=== PATIENT | male | born 1955 | race Caucasian/White ===

== ENCOUNTER → 2017-03-04 | Outpatient (CLI) | payer BC ==
--- NOTE | 2017-03-04 13:31 | PCVCIMAG ---
APPROVED REPORT Exam: Stress Echocardiogram Indication: Hyperlipidemia, Hypertension Patient Location: Echo lab Stress Nurse: Rosemary Tran RN Status: routine Ht: 5 ft 11 in HR: 64 bpm BP: 116/70 mmHg Rhythm: NSR Stress Test Details Stress Test: Exercise stress testing was performed using a modified [employer] protocol. HR Resting HR: 64 bpmMax Heart Rate (APMHR): 157 bpm Max HR Achieved: 164 bpmTarget HR (85% APMHR): 133 bpm % of APMHR: 104 Recovery HR: 107 bpm HR response to stress: Normal HR response to stress BP Resting BP: 116/70 mmHg Max BP: 158/64 mmHg Recovery BP: 134/60 mmHg ECG Resting ECG: Sinus Rhythm Stress ECG: Sinus Rhythm Recovery ECG: Sinus Rhythm Recovery Arrhythmia: , APC Clinical Reason for Termination: Maximal effort Exercise duration: 6 min 00 sec Highest Stage Achieved: Stage 2: 2.5 mph at 12% grade. Exercise capacity: 7.00 METs Overall Exercise Capacity for Age: Average Pre-Stress Echo The resting Echocardiogram showed normal left ventricular contractility with an estimated Ejection Fraction of about >55%. Normal wall motion in all segments on baseline images. Known mitral valve prolapse with mild-moderate mitral regurgitation. Trace Tricuspid regurgitation. Pulmonary artery pressure is 28 mmHg. Post-Stress Echo The stress Echocardiogram showed normal left ventricular contractility with an estimated Ejection Fraction of about 60-65%. Normal augmentation of wall motion in all segments on post stress images. Clinical No clinical or ECG evidence for ischemia. Conclusion Clinical Response: Non-ischemic Exercise Capacity: Average Stress ECG Response: Non-ischemic Stress Echo Images: Non-ischemic The left ventricle is normal in size and wall thickness in both the rest and stress images. Other Information Study Quality: Good <Conclusion> The left ventricle is normal in size and wall thickness in both the rest and stress images.
== END ==
LOC: PCVCIMAG 09:20
PROVIDERS: ATTEND Internal Medicine Cardiovascular Disease
DX: I34.0 Nonrheumatic mitral (valve) insufficiency (principal); I10 Essential (primary) hypertension; E78.5 Hyperlipidemia, unspecified
CPT/HCPCS: 93325; 93351